=== PATIENT | female | born 1960 | race Caucasian/White ===

== ENCOUNTER 2022-04-24 11:45 | Outpatient (RCR) | payer BC, SELFPAY | END 2022-07-29 15:24 | disposition home or self-care (01) | PROVIDERS: PCP Family Medicine; Visit Provider Specialist | DX: M54.16 Radiculopathy, lumbar region (principal); Z51.89 Encounter for other specified aftercare | CPT/HCPCS: 97032; 97110 ==

== ENCOUNTER 2022-10-02 18:40 | Outpatient (CLI) | payer BC, SELFPAY | END 2022-10-02 18:41 | disposition home or self-care (01) | LOC: AMB 10-03 12:30 | PROVIDERS: PCP Family Medicine; Visit Provider Family Medicine | DX: R53.1 Weakness (principal); M54.9 Dorsalgia, unspecified | CPT/HCPCS: A0425; A0429 ==

== ENCOUNTER 2023-07-09 09:30 | Outpatient (RCR) | payer BC, SELFPAY | END 2023-09-18 11:27 | disposition home or self-care (01) | PROVIDERS: PCP Family Medicine; Visit Provider Family Medicine | DX: M17.12 Unilateral primary osteoarthritis, left knee (principal); R26.9 Unspecified abnormalities of gait and mobility; M25.551 Pain in right hip; Z51.89 Encounter for other specified aftercare | CPT/HCPCS: 97110; 97161 ==

== ENCOUNTER 2023-08-12 08:40 | Day surgery (SDC) | payer BC, MEDICARE, SELFPAY ==
[2023-08-12] VITALS (23 sets, daily range): BP systolic 97–176; BP diastolic 54–114; PULSE 73–113; RESP 12–18; TEMP 36.3–36.8; O2SAT 94–100; BMI 33.5
[2023-08-12] MEDS: ACETAMINOPHEN 500 MG TABLET 1000 MG PO ×3 (09:00→21:55)
[2023-08-12] MEDS: CELECOXIB 200 MG CAPSULE PO (09:00)
[2023-08-12] MEDS: OXYCODONE (CR) 10 MG TAB.ER.12H PO (09:00)
[2023-08-12] MEDS: SODIUM CHLORIDE 0.9 % (FLUSH) 10 ML SYRINGE IVF (09:10)
[2023-08-12] MEDS: LACTATED RINGERS 1000 ML 1,000 ML 100 ML IV ×2 (09:10→12:15)
[2023-08-12] MEDS: MIDAZOLAM HCL 1 MG/ML inj IVP (10:20)
[2023-08-12] MEDS: fentaNYL 100 MCG/2 ML inj IVP (10:20)
--- NOTE | 2023-08-12 10:33 | SUR.PREOP ---
TIME?OUT:?1020 PT/Escobar COHEN RN/ Desirae LEBLANC RESEARCH PROJECT MANAGER/ Vick FRANKEL MDA?VERIFICATION?OF?SURGICAL?SITE,?PROCEDURE,?AND?CONSENT OBTAINED?PRIOR?TO?INVASIVE?PROCEDURE.
[2023-08-12] MEDS: CEFAZOLIN 2 GM INJ IVP (10:57)
[2023-08-12] MEDS: TRANEXAMIC ACID 100 MG/ML INJ 1000 MG IV (11:00)
--- NOTE | 2023-08-12 11:11 | P.NB_ITS ---
Nerve Block Nerve Block Time Seen by Provider: 10:26 Date Seen: 08/12/23 Type of block requested by surgeon for post-operative analgesia: adductor canal Side: left Time out performed: Yes Verification of patient name: Yes Verification of date of : Yes Site marking: site marked Name of person performing procedure: Trey Assistants, if any: Georgie Continuous monitoring Was continuous monitoring of O2 sat, B/P, lunchroom monitor, recorded every 15 minutes?: Yes Procedure Checklist: sterile prep, needles and gloves Ultrasound guided. Images saved: Yes Medications given in 5ml increments after negative aspiration: Ropivicaine %: 0.5 mL: 20 Needle gauge: 20 Decadron (mg): 10 Precedex (mcg): 25 Patient tolerated procedure well: Yes Additional comments: Needle noted adjacent to nerve Block Charges Block Charge (with Pro Fee): Femoral Nerve Use of Ultrasound Machine for Block: Yes- US Guidance/pain block
--- NOTE | 2023-08-12 11:12 | W.ANESCHARGE ---
Anesthesia Charges Start Date/Time Anesthesia Start Date: 08/12/23 Anesthesia Start Time: 10:44 Stop Date/Time Anesthesia Stop Date: 08/12/23 Anesthesia Stop Time: 13:05
--- NOTE | 2023-08-12 12:16 | CRLHL7_ITS ---
For Patients: As a result of the Cures Act, medical imaging exams and procedure reports are released immediately into your electronic medical record. You may view this report before your referring provider. If you have questions, please contact your health care provider. INDICATION: Postop left knee. TECHNIQUE: AP and cross-table lateral views of the left knee. COMPARISON: None. FINDINGS: Immediate postop changes of left total knee arthroplasty. Prosthetic components well-seated and aligned. IMPRESSION: Immediate postop changes of left total knee arthroplasty without evidence of complication. Dictated by Smooth Norman MD @ 08/12/2023 4:09:56 PM (Electronically Signed)
--- NOTE | 2023-08-12 12:17 | PM.ORPRC ---
Procedure Note Date of procedure: 08/12/23 Procedure: PREOPERATIVE DIAGNOSIS: Left knee osteoarthritis POSTOPERATIVE DIAGNOSIS: Left knee osteoarthritis NAME OF OPERATION: Left total knee arthroplasty SURGEON: Enoch Garcia MD SCHOOL BUS INSPECTOR: Danielle Pitts PA-C ANESTHESIA: Spinal ESTIMATED BLOOD LOSS: 0 mL COMPLICATIONS: None SPECIMENS: None DRAINS: None PREOPERATIVE ANTIBIOTICS: Ancef 2 grams, antibiotic impregnated cement IMPLANTS: 1. J&J Attune #6 posterior stabilized femur 2. # 5 fixed-bearing tibia 3. #6 posterior stabilized, 5 mm fixed-bearing polyethylene 4. 35 patella INDICATIONS: The patient is a 63-year-old with a longstanding history of severe, unrelenting left knee pain secondary to end-stage (grade IV) left knee osteoarthritis. Despite appropriate nonoperative management, including activity modification, anti-inflammatories, [id number]-eeqwvpy pain medication, bracing, physical therapy, and injections they continue to have pain and disability. Operative intervention was offered. The risks, benefits and expected outcomes were discussed in detail. These included but were not limited to: Infection, bleeding, injury to blood vessel or nerve, venous thromboembolism. All questions were answered to their satisfaction. Use of an temporary administrative assistant was necessary throughout the case for patient positioning and safety, soft tissue retraction, and closure. PROCEDURE: Spinal anesthesia was administered. The patient was placed supine on the operating table. The temporary administrative assistant made sure the patient was positioned appropriately. The lower extremity was prepped and draped in the usual sterile fashion. The limb was exsanguinated with the [place] bandage. The pneumatic tourniquet was inflated to 300 mmHg. A standard anterior incision was made with the knee in flexion. Subcutaneous dissection was sharply taken through fascial layer #1. Full-thickness medial and lateral flaps were elevated. The temporary administrative assistant retracted the soft tissues and protected them throughout the case. A subvastus approach was made. The patella was everted. The infrapatellar fat pad was preserved. The menisci and cruciate ligaments were sharply d?brided. Marginal osteophytes were d?brided with the rongeur. The drill was used to penetrate the femoral canal. The canal was aspirated and irrigated with pulse lavage. The intramedullary femoral guide was placed for a 5-degree valgus cut, removing 10 mm off the distal femur. The saw was used to make the cut. Whitesides line and the trans epicondylar axis were marked. The femoral sizing guide was pinned onto the distal femur. Three degrees of external rotation nicely parallels the transepicondylar axis. Pins were placed for posterior referencing. The four-in-one cutting guide was pinned onto the distal femur. The anterior, posterior, and chamfer cuts were made. The temporary administrative assistant protected the collateral ligaments. The box cutting guide was pinned. The box cuts were made. The boxed trial was placed and was an excellent fit. Drill holes for the lugs were made. Attention was then turned to the proximal tibia. The extramedullary tibial guide was placed for a neutral varus/valgus cut with 5 degrees of posterior slope, removing 1 mm based off the medial tibial surface. The temporary administrative assistant protected the collateral ligaments and the neurovascular bundle. The saw was used to make the cut. Trial components were placed. The knee was nicely balanced in both flexion and extension. The trial components were removed. The tray was placed in appropriate rotation, parallel to our tibial cutting pins. It was pinned by the temporary administrative assistant and the drill and the punch were used. The tray was removed. The punch was used again. We placed a bone plug in the femoral canal. Attention was then turned to the patella. [place] patellar thickness was 21 mm. The lobster claw resection guide was used with the 7.5 mm jl. The saw was used to make the cut. Drill holes were made by the temporary administrative assistant. The trial was placed and was an excellent fit. Cancellous surfaces were irrigated with pulse lavage and thoroughly dried by the temporary administrative assistant. We cemented the tibial component, then the femoral component. We impacted the 5 mm polyethylene onto the tibial tray. The knee was brought into full extension. We then cemented the patellar component. Excessive cement was removed. The cement was allowed to harden. The knee was taken through a range of motion and was found to be nicely balanced in both flexion and extension. The patella tracks centrally. The temporary administrative assistant did a three minute dilute Betadine solution soak. The temporary administrative assistant irrigated the wound with 3 liters of normal saline via pulse lavage. The temporary administrative assistant reapproximated the extensor mechanism with #1 Vicryl in an interrupted kfqjig-[id number] fashion. The temporary administrative assistant then ran the extensor mechanism with a #1 PDO Stratafix. The temporary administrative assistant closed the subcutaneous tissues with a 3-0 Stratafix and the skin with a running 3-0 Stratafix in a subcuticular fashion. Glue was used to seal the skin. The temporary administrative assistant placed a dry dressing, BOY stocking, and Polar Care. Sponge and needle counts were correct x2. The patient tolerated the procedure well. There were no apparent complications. They were carefully transferred to the hospital bed and taken to the postanesthesia care unit in satisfactory condition. PLAN: The patient will be mobilized with physical therapy. Aspirin will be used for DVT prophylaxis. They will be discharged to home once medically appropriate.
--- NOTE | 2023-08-12 13:05 | W.ANESCHARGE ---
Anesthesia Charges Start Date/Time Anesthesia Start Date: 08/12/23 Anesthesia Start Time: 10:44 Stop Date/Time Anesthesia Stop Date: 08/12/23 Anesthesia Stop Time: 13:05
--- NOTE | 2023-08-12 13:42 | SUR.PHASEI ---
patient met discharge criteria per anesthesia
[2023-08-12] MEDS: OXYCODONE 5 MG TABLET PO ×2 (14:37→18:45)
--- NOTE | 2023-08-12 15:37 | P.IMCN_ITS ---
Date of Consult Patient: Trey Patient Consult date: 08/12/23 Requesting Physician: Orthopedics Primary Care Provider: Art Napoles MD Consult Narrative Reason for consult: DM2, hyperlipidemia, HTN Narrative: Kaci Soto is a 63 year old female who underwent an elective left total knee arthroplasty today by Dr. Garcia. She is doing well postoperatively. Her pain is minimal and she has no complaints. Review of Systems Status of ROS: Reports: 6 or more systems reviewed and unremarkable except as noted in History and below PFSH PFSH Medical History Osteoporosis ?M81.0 - Age-related osteoporosis without current pathological fracture (ICD- 10) Other abnormal clinical finding ?R68.89 - Other general symptoms and signs (ICD-10) Type 2 diabetes mellitus ?E11.9 - Type 2 diabetes mellitus without complications (ICD-10) Hyperlipidemia ?E78.5 - Hyperlipidemia, unspecified (ICD-10) Compression fracture of thoracic vertebra ?S22.000A - Wedge compression fracture of unspecified thoracic vertebra, initial encounter for closed fracture (ICD-10) Adenomatous colon polyp ?D12.6 - Benign neoplasm of colon, unspecified (ICD-10) Tendinitis involving right hip abductors ?M76.891 - Other specified enthesopathies of right lower limb, excluding foot (ICD-10) Lumbar degenerative disc disease ?M51.36 - Other intervertebral disc degeneration, lumbar region (ICD-10) Osteoarthritis of left knee ?M17.12 - Unilateral primary osteoarthritis, left knee (ICD-10) Hypertension (07/19/11) ?I10 - Essential (primary) hypertension (ICD-10) Tobacco use (07/19/11) ?Z72.0 - Tobacco use (ICD-10) Surgical History (Updated 08/12/23 @ 21:12 by Basilia Galloway MD) Status post total left knee replacement (08/12/23) ?Z96.652 - Presence of left artificial knee joint (ICD-10) H/O vertebroplasty ?Z98.890 - Other specified postprocedural states (ICD-10) History of lumbar fusion ?Z98.1 - Arthrodesis status (ICD-10) Hx of colonoscopy ?Z98.890 - Other specified postprocedural states (ICD-10) History of tubal ligation (07/19/11) ?Z98.51 - Tubal ligation status (ICD-10) History of section (07/19/11) ?Z98.891 - History of uterine scar from previous surgery (ICD-10) History of total right knee replacement (11/07/20) ?Z96.651 - Presence of right artificial knee joint (ICD-10) Family History (Updated 08/12/23 @ 15:44 by Basilia Galloway MD) Father Colon cancer, Onset Age: 60 Brother Diabetes Brother Diabetes Social History (Updated 08/12/23 @ 15:48 by Basilia Galloway MD) Narrative: -Al. Never smoker. Occasional alcohol. Smoking Status: Never smoker Do you use any of these nicotine containing products: None Second hand tobacco smoke exposure: No How often do you have a drink containing alcohol: 2-4 times a month AUDIT-C Alcohol total score: 2 Non-prescribed substance use: denies use Caffeine: Yes Meds Home Medications and Allergies Home Medications Medication Instructions Recorded Confirmed Type alendronate 70 mg tablet 70 mg PO Q7D 02/21/23 08/12/23 History amlodipine 10 mg tablet 10 mg PO DAILY 02/21/23 08/12/23 History atorvastatin 40 mg tablet 40 mg PO DAILY 02/21/23 08/12/23 History glipizide 10 mg tablet, extended 10 mg PO BIDWM 02/21/23 08/12/23 History release 24 hr lisinopril 20 mg tablet 20 mg PO DAILY 02/21/23 08/12/23 History metformin 1,000 mg tablet 1,000 mg PO BIDWM 02/21/23 08/12/23 History pioglitazone 30 mg tablet 30 mg PO DAILY 02/21/23 08/12/23 History aspirin 81 mg tablet,delayed 81 mg PO DAILY 08/08/23 08/12/23 History release amoxicillin 500 mg capsule 2,000 mg PO ONCE PRN 08/12/23 08/12/23 History polyethylene glycol 3350 17 17 g PO DAILY PRN 08/12/23 08/12/23 History gram/dose oral powder (ClearLax) Allergies Allergy/AdvReac Type Severity Reaction Status Date / Time blood-group product Allergy Uncoded 08/08/23 11:59 Exam Narrative: Exam Narrative: General: No acute distress. Awake alert oriented x3. HEENT: Normocephalic atraumatic, pupils equally round and reactive to light and accommodation. Oropharynx clear. Mucous membranes are moist. No cervical lymphadenopathy, thyromegaly or carotid bruits. No JVD. Cardiovascular: Regular rate and rhythm. No murmurs, gallops, or rubs. Chest: No increased work of breathing. Clear to auscultation bilaterally. No crackles or wheezes. Abdomen: Bowel sounds present. Soft, nondistended, nontender. No hepatosplenomegaly or masses. Extremities: Left knee bandage is clean, dry, and intact. No edema, no cyanosis or clubbing. Const: Vital Signs, click to edit/add: Vital Signs - 24 hr 08/12/23 09:14 08/12/23 10:18 08/12/23 10:20 Temperature 97.9 F Pulse Rate 101 H 89 93 Respiratory Rate 16 16 16 Blood Pressure 151/75 H 150/111 H 176/101 H Pulse Oximetry 98 100 100 Oxygen Delivery Me thod Room Air Nasal Cannula Nasal Cannula Oxygen Flow Rate 2 2 08/12/23 10:25 08/12/23 10:30 08/12/23 13:01 Temperature 98.2 F Pulse Rate 92 84 75 Respiratory Rate 16 16 12 Blood Pressure 162/78 H 152/91 H 97/56 L Pulse Oximetry 98 100 94 Oxygen Delivery Me thod Nasal Cannula Nasal Cannula Room Air Oxygen Flow Rate 2 2 08/12/23 13:05 08/12/23 13:10 08/12/23 13:15 Temperature 98.2 F 98.2 F 98.2 F Pulse Rate 75 75 75 Respiratory Rate 15 14 14 Blood Pressure 102/60 109/54 L 110/60 Pulse Oximetry 94 94 94 Oxygen Delivery Me thod Room Air Room Air Room Air Oxygen Flow Rate 08/12/23 13:20 08/12/23 13:25 08/12/23 13:30 Temperature 98.2 F 98.2 F 97.4 F L Pulse Rate 75 73 77 Respiratory Rate 13 12 14 Blood Pressure 112/64 115/59 L 116/69 Pulse Oximetry 94 95 95 Oxygen Delivery Me thod Room Air Room Air Room Air Oxygen Flow Rate Assessment and Plan Assessment and plan (1) Status post total left knee replacement: Problem comment: Dr. Garcia Status: Acute (2) Osteoarthritis of left knee: Problem comment: Severe, [id number] Status: Chronic (3) Hypertension: Status: Chronic (4) Hyperlipidemia: Status: Chronic (5) Type 2 diabetes mellitus: Problem comment: 05/2023 HgbA1C 6.5% Status: Chronic Plan 63-year-old female with hypertension, hyperlipidemia, and type 2 diabetes mellitus who underwent elective total left knee replacement today. She is doing well postoperatively, routine cares. I have reconciled her medications and I am holding her usual antihypertensives as patient's tend to have lower blood pressures on the 1st postoperative day. Will continue her atorvastatin, glipizide, metformin, and pioglitazone. I have also ordered Accu-Cheks with meals and at bedtime and and insulin sliding scale. She is expected to discharge home tomorrow and can resume her usual medications then. For postoperative VTE prophylaxis she is getting twice a day baby aspirin.
[2023-08-12] MEDS: CEFAZOLIN 2 GM in 0.9 % SODIUM CHLORIDE Mini-bag 100 ML IVPB (17:41)
--- NOTE | 2023-08-12 19:15 | PC.NURSE ---
Nursing Care Hours: [id number] Pt arrived to floor awake and oriented. Pain increased to 6/10, treated per eMAR, cryocuff running and treatment effective. CDI, pedal pulses present, CMS intact. Tolerating regular diet and fluids. Up to void 1 assist x2. VSS. IS hitting about 750. ABX administered.
[2023-08-12] MEDS: SENNOSIDES 1 TAB TABLET 2 TAB PO (21:55)
[2023-08-12] MEDS: ASPIRIN 81 MG TABLET EC PO (21:57)
[2023-08-12] MEDS: INSULIN ASPART 100 UNIT/ML SUBCUT (22:44)
[2023-08-13] MEDS: CEFAZOLIN 2 GM in 0.9 % SODIUM CHLORIDE Mini-bag 100 ML IVPB (02:36)
[2023-08-13 02:44] VITALS: BP 131/63; PULSE 88; RESP 18; TEMP 36.4; O2SAT 94
[2023-08-13] MEDS: ACETAMINOPHEN 500 MG TABLET 1000 MG PO ×2 (03:19→09:44)
--- NOTE | 2023-08-13 05:34 | PC.NURSE ---
Patient pleasant, alert and oriented. Ambulates with walker and assist of one. Dressing to left knee CD&I. Cryocuff applied. Scheduled Tylenol given per orders. Reported pain in left knee rated?4/10. PRN pain medications offered however patient reported?pain was tolerable?and stated,?It's not horrible. VSS.?
[2023-08-13 06:46] LABS: Hematocrit 35.7 % (33.0-51.0); Hemoglobin* 11.9 gm/dL (12.0-16.0); Lymphocytes Percent Auto 13.5 % (20-44); Mean Corpuscular HGB Conc 33 gm/dL (32-36); Mean Corpuscular Hemoglobin 32 pg (26-34); Mean Corpuscular Volume 94 fL (80-100); Neutrophils Percent Auto 77.7 % (42.0-72.0); Platelet Count* 194 K/uL (140-440); RDW Coefficient of Variation % 12.2 % (11.5-15.5); Red Blood Count 3.78 m/uL (4.00-5.20); White Blood Count* 6.76 K/uL (4.50-11.00)
[2023-08-13 06:47] LABS: Basophils Absolute Auto 0.01 K/uL (0.00-0.30); Basophils Percent Auto 0.1 % (0.0-3.0); Immature Granulocytes Abs Auto 0.01 K/uL (0.00-0.30); Immature Granulocytes Pct Auto 0.1 %; Monocytes Percent Auto 8.6 % (0.0-11.0)
[2023-08-13 06:58] LABS: Slide Review Reflex No
[2023-08-13 07:03] LABS: INR 0.93 (0.91-1.10); Potassium* 4.4 mmol/L (3.6-5.1); Sodium* 134 mmol/L (135-149)
[2023-08-13 07:06] LABS: Blood Urea Nitrogen* 13 mg/dL (7-30); Creatinine* 0.6 mg/dL (0.5-1.5); Estimated Glomerular Filt Rate 100 ml/min
[2023-08-13 08:12] VITALS: BP 139/71; PULSE 91; RESP 18; TEMP 36.6; O2SAT 98
[2023-08-13] MEDS: glipiZIDE XL 5 MG TAB 10 MG PO (08:15)
[2023-08-13] MEDS: METFORMIN 1,000 MG TABLET 1000 MG PO (08:15)
[2023-08-13] MEDS: OXYCODONE 5 MG TABLET PO (08:20)
[2023-08-13] MEDS: INSULIN ASPART 100 UNIT/ML SUBCUT (08:33)
--- NOTE | 2023-08-13 09:03 | PM.ORPN ---
Subjective Subjective Time Seen by Provider: 07:20 Date Seen: 08/13/23 Principal diagnosis: Status post left knee replacement Interval history: Marianna is comfortable this morning. She denies nausea and vomiting. She plans to discharge today to home. Ortho Exam Narrative Exam Narrative: Alert and oriented x3. Patient is in no acute distress. Converses without labored breathing. Hearing is grossly intact. Ambulates with a walker. Examination of the left lower extremity shows the dressing is intact. Mild soft tissue edema. Bilateral calves are soft and nontender. CMS intact left lower extremity. Quad strength 5/5. No erythema or warmth or sign of infection. Const Vital Signs, click to edit/add: Vital Signs - 24 hr 08/12/23 09:14 08/12/23 10:18 08/12/23 10:20 Temperature 97.9 F Pulse Rate 101 H 89 93 Pulse Rate [Pulse Oximeter] Respiratory Rate 16 16 16 Blood Pressure 151/75 H 150/111 H 176/101 H Blood Pressure [Left Arm] Blood Pressure [Right Arm] Pulse Oximetry 98 100 100 Oxygen Delivery Method Room Air Nasal Cannula Nasal Cannula Oxygen Flow Rate 2 2 08/12/23 10:25 08/12/23 10:30 08/12/23 13:01 Temperature 98.2 F Pulse Rate 92 84 75 Pulse Rate [Pulse Oximeter] Respiratory Rate 16 16 12 Blood Pressure 162/78 H 152/91 H 97/56 L Blood Pressure [Left Arm] Blood Pressure [Right Arm] Pulse Oximetry 98 100 94 Oxygen Delivery Method Nasal Cannula Nasal Cannula Room Air Oxygen Flow Rate 2 2 08/12/23 13:05 08/12/23 13:10 08/12/23 13:15 Temperature 98.2 F 98.2 F 98.2 F Pulse Rate 75 75 75 Pulse Rate [Pulse Oximeter] Respiratory Rate 15 14 14 Blood Pressure 102/60 109/54 L 110/60 Blood Pressure [Left Arm] Blood Pressure [Right Arm] Pulse Oximetry 94 94 94 Oxygen Delivery Method Room Air Room Air Room Air Oxygen Flow Rate 08/12/23 13:20 08/12/23 13:25 08/12/23 13:30 Temperature 98.2 F 98.2 F 97.4 F L Pulse Rate 75 73 77 Pulse Rate [Pulse Oximeter] Respiratory Rate 13 12 14 Blood Pressure 112/64 115/59 L 116/69 Blood Pressure [Left Arm] Blood Pressure [Right Arm] Pulse Oximetry 94 95 95 Oxygen Delivery Method Room Air Room Air Room Air Oxygen Flow Rate 08/12/23 13:38 08/12/23 13:45 08/12/23 14:00 Temperature 97.4 F L 97.5 F L Pulse Rate 79 Pulse Rate [Pulse Oximeter] 80 92 Respiratory Rate 14 14 14 Blood Pressure Blood Pressure [Left Arm] Blood Pressure [Right Arm] 122/64 122/61 142/114 H Pulse Oximetry 95 96 Oxygen Delivery Method Room Air Room Air Room Air Oxygen Flow Rate 08/12/23 14:15 08/12/23 14:30 08/12/23 15:15 Temperature 97.7 F Pulse Rate Pulse Rate [Pulse Oximeter] 77 77 90 Respiratory Rate 16 16 Blood Pressure Blood Pressure [Left Arm] Blood Pressure [Right Arm] 128/62 127/66 131/74 Pulse Oximetry 95 97 Oxygen Delivery Method Room Air Room Air Oxygen Flow Rate 08/12/23 15:30 08/12/23 16:30 08/12/23 18:30 Temperature Pulse Rate Pulse Rate [Pulse Oximeter] 103 H 106 H 113 H Respiratory Rate 16 16 16 Blood Pressure Blood Pressure [Left Arm] Blood Pressure [Right Arm] 142/73 H 141/71 H 139/74 Pulse Oximetry 95 95 97 Oxygen Delivery Method Room Air Room Air Room Air Oxygen Flow Rate 08/12/23 19:30 08/12/23 22:33 08/13/23 02:44 Temperature 97.6 F 97.6 F 97.6 F Pulse Rate Pulse Rate [Pulse Oximeter] 100 98 88 Respiratory Rate 17 18 18 Blood Pressure Blood Pressure [Left Arm] 143/83 H 131/63 Blood Pressure [Right Arm] 141/70 H Pulse Oximetry 96 95 94 Oxygen Delivery Method Room Air Room Air Room Air Oxygen Flow Rate 08/13/23 08:12 Temperature 97.9 F Pulse Rate Pulse Rate [Pulse Oximeter] 91 Respiratory Rate 18 Blood Pressure Blood Pressure [Left Arm] Blood Pressure [Right Arm] 139/71 Pulse Oximetry 98 Oxygen Delivery Method Room Air Oxygen Flow Rate Assessment and Plan Assessment and plan (1) Status post total left knee replacement: Problem details: Dr. Garcia 08/12/2023 Status: Acute Assessment and Plan: Plan for discharge is today to home if they meet discharge criteria. DVT prophylaxis includes aspirin 81 mg twice daily x1 month, [place] stockings x1 month may remove for 1 hr per day, frequent ambulation Remove dressing in 1 week. Observe wound and phone Orthopedics with any questions or concerns Return to clinic in 1 week for a wound check Return to clinic in 6 weeks with surgeon Minimize narcotic use. Wean off and discontinue soon as possible. Activities as tolerated. No strenuous activity. Outpatient physical therapy as scheduled. Ice and elevate the operative extremity. No restriction on ice.
[2023-08-13] MEDS: ATORVASTATIN CALCIUM 40 MG TABLET PO (09:44)
[2023-08-13] MEDS: SENNOSIDES 1 TAB TABLET 2 TAB PO (09:44)
[2023-08-13] MEDS: ASPIRIN 81 MG TABLET EC PO (09:44)
--- NOTE | 2023-08-13 13:44 | PC.NURSE ---
shift note: vss stable. pt afeb. IV dc'd intact. drsg to lt knee c/d/i. slight swelling around lt knee. cms intact. PP+ bilat l/e. pt states pain 1-210 upon dc. reviewed dc instructions and copies sent with pt. Belongings reviewed and sent with pt at dc.
== END 2023-08-13 11:00 | disposition home or self-care (01) ==
LOC: OR 08:42 → MEDSURG 08:46
PROVIDERS: PCP Family Medicine; Visit Provider Orthopaedic Surgery
PROC: (CPT 27447; principal; 2023-08-12 10:45)
DX: M17.12 Unilateral primary osteoarthritis, left knee (principal); G89.18 Other acute postprocedural pain; I10 Essential (primary) hypertension; E11.9 Type 2 diabetes mellitus without complications; Z79.82 Long term (current) use of aspirin; E78.5 Hyperlipidemia, unspecified; Z01.812 Encounter for preprocedural laboratory examination; Z13.0 Encounter for screening for diseases of the blood and blood-forming organs and certain disorders involving the immune mechanism
CPT/HCPCS: 27447; 01402; 36415; 64447; 73560; 76942; 82565; 82962; 84132; 84295; 84520; 85025; 85610; 97110; 97116; 97161; 97165; 97530; 97535; A9270; C1776; J0690; J1100; J2250; J2405; J2704; J2795; J3010; J7120

== ENCOUNTER 2023-09-23 11:15 | Outpatient (RCR) | payer MEDICARE, BC, SELFPAY | END 2023-12-11 13:24 | disposition home or self-care (01) | PROVIDERS: PCP Family Medicine; Visit Provider Orthopaedic Surgery | DX: M17.12 Unilateral primary osteoarthritis, left knee (principal); Z96.652 Presence of left artificial knee joint; Z51.89 Encounter for other specified aftercare | CPT/HCPCS: 97110; 97116; 97140; 97161; 97164 ==